=== PATIENT | female | born 1980 | race Caucasian/White ===

== ENCOUNTER 2024-11-10 14:43 | Outpatient (CLI) | payer BC, SELFPAY ==
--- NOTE | 2024-11-10 14:46 | XR_ITS ---
FINAL REPORT CLINICAL HISTORY: Assess fecal burden COMPARISON: None FINDINGS: SINGLE VIEW ABDOMEN A single view of the abdomen was obtained. There is a moderate stool burden. No abnormal calcifications are identified. IMPRESSION: Moderate stool burden. Reviewed, Interpreted and Dictated by Robert Parra MD Transcribed by Marisabel Johnson Authenticated and [facility]
--- OUTSIDE RECORDS SUMMARY | 2024-11-10 14:47 | XMS_ITS | Encounter Summary ---
Author Organization Healthcare Address [address] [place] [address] Care Team Providers Care Intervention Specialist Name Role Phone Angelica Ku APRN Primary Care Provider [phone] Wilmar Ndiaye MD Primary Care Provider [phone] Reason for Visit * Reason Onset Date Comments Med Refill 06/03/2022 Encounter Details Date Type Department Care Team (Late st Contact Info) Description 06/03/2022 Refill [facility] [address] [place] [address] Angelica Ku APRN [address] [place] [address] Intractable migraine without aura and without status migrainosus (Primary Dx) Social History Tobacco Use Types Packs/Day Years Used Date Smoking Tobacco: Never Smokeless Tobacco: Never Alcohol Use Standard Drinks/Week Comments Not Currently 0 (1 standard drink = 0.6 oz pur e alcohol) PHQ-2 Answer Date Recorded Patient Health Questionnaire-2 Score 0 05/07/2022 Comments No Sex and Gender Information Value Date Recorded Sex Assigned at Not on file Legal Sex Female 8:52 PM EDT Gender Identity Not on file Sexual Orientation Not on file COVID-19 Exposure Response Date Recorded In the last 10 days, have yo u been in contact with someone who was confirmed or suspected to have Coronavirus/COVID-19? No / Unsure 05/06/2022 9:46 AM EST documented as of this encounter Miscellaneous Notes * Telephone Encounter - Katie Ku - 06/04/2022 3:45 PM EST Attempted to call, pt not accepting calls. documented in this encounter Plan of Treatment Not on file documented as of this encounter Visit Diagnoses Diagnosis Intractable migraine without aura and without status migrainosus- Primary documented in this encounter Care Teams Intervention Specialist Relationship Specialty Start Date End Date Angelica Ku APRN [address] [place] [address] PCP - General Family Medicine 03/26/22 07/23/24 Wilmar Ndiaye MD [address] [place] [address] PCP - General 07/24/24 documented as of this encounter
--- OUTSIDE RECORDS SUMMARY | 2024-11-10 14:47 | XMS_ITS | Encounter Summary ---
[facility] Organization [facility] Address [address] [place] [id number] Care Team Providers Care Helicopter Engineer Name Role Phone Angelica Ku APRN Primary Care Provider [phone] Encounter Details Date Type Department Care Team (Late st Contact Info) Description 04/20/2021 Telephone [facility] [address] [facility] [place] [address] Christiano Zapien MD [address] [facility] [address] Kwan [place], [place] [id number] Social History Tobacco Use Types Packs/Day Years Used Date Smoking Tobacco: Never Assessed Comments No Sex and Gender Information Value Date Recorded Sex Assigned at Not on file Legal Sex Female 10:36 AM EDT Gender Identity Not on file Sexual Orientation Not on file 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
--- OUTSIDE RECORDS SUMMARY | 2024-11-10 14:47 | XMS_ITS | Encounter Summary ---
Author Organization Healthcare Address [address] [place] [address] Care Team Providers Care First Cook Name Role Phone Angelica Ku APRN Primary Care Provider [phone] Wilmar Ndiaye MD Primary Care Provider [phone] Encounter Details Date Type Department Care Team (Late st Contact Info) Description 07/23/2024 Outside Procedure External Location [address] [place] [address] Wilmar Ndiaye MD [address] [place] [address] Social History Tobacco Use Types Packs/Day Years Used Date Smoking Tobacco: Never Smokeless Tobacco: Never Alcohol Use Standard Drinks/Week Comments Not Currently 0 (1 standard drink = 0.6 oz pur e alcohol) Humiliation, Afraid, Rape, and Kick questionnair e Answer Date Recorded Within the last year, have y ou been afraid of your partner or ex-partner? No 02/12/2024 Within the last year, have y ou been humiliated or emotionally abused in other ways by your partner or ex-partner? No Within the last year, have y ou been kicked, hit, slapped, or otherwise physically hurt by your partner or ex-partner? No 02/12/2024 Within the last year, have y ou been raped or forced to have any kind of sexual activity by your partner or ex-partner? No 02/12/2024 PHQ-2 Answer Date Recorded Patient Health Questionnaire-2 Score 0 02/14/2024 Hunger Vital Sign Answer Date Recorded Within the past 12 months, y ou worried that your food would run out before you got the money to buy more. Never true 02/12/20 24 Within the past 12 months, t he food you bought just didn't last and you didn't have money to get more. Never true 02/12/2024 PRAPARE - Transportation Answer Date Re corded In the past 12 months, has l ack of transportation kept you from medical appointments or from getting medications? No 09/2023 In the past 12 months, has l ack of transportation kept you from meetings, work, or from getting things needed for daily living? No 02/12/2024 Housing Stability Vital Sign Answer Derik e Recorded In the last 12 months, was t here a time when you were not able to pay the mortgage or rent on time? No 02/12/2024 In the last 12 months, how many places have you lived? 1 02/12/2024 In the last 12 months, was t here a time when you did not have a steady place to sleep or slept in a long term (including now)? No 02/12/2024 Utilities Answer Date Recorded In the past 12 months has th e electric, gas, oil, or water company threatened to shut off services in your home? No 02/12/2024 PHQ-2A Answer Date Recorded Patient Health Questionnaire-2 Score 0 11/13/2022 Comments No Sex and Gender Information Value Date Recorded Sex Assigned at Not on file Legal Sex Female 8:52 PM EDT Gender Identity Not on file Sexual Orientation Not on file documented as of this encounter Plan of Treatment Not on file documented as of this encounter Procedures Procedure Name Priority Date/Time Associated Diagnosis Comments MAMMOGRAPHY BREAST SCREENING TOMOSYNTHESIS BILATERAL 07/23/2024 4:37 PM EDT documented in this encounter Results * Mammography Breast Screening Tomosynthesis Bilateral (07/23/2024 4:37 PM EDT) Anatomical Region Laterality Modality Breast Bilateral Mammography 07/23/2024 4:37 PM EDT Narrative 07/24/2024 6:01 AM EDT [facility] [address] [place] [address] Name: CHANELL LO Exam Date: 07/23/2024 : 1980 Age 44 years Gender: F Physician: Wilmar Ndiaye Facility: [facility] Facility HSV: Outpatient Exam: DIRK SCRN MAMMO W/CAD BILAT Exam: 3-D screening mammography including tomosynthesis and CAD (Computer Assisted Detection). Clinical indication: Asymptomatic screening exam Comparison: Exams to 2022 TECHNIQUE: Routine bilateral 2D screening mammogram with CC and MLO views obtained. 3-D tomosynthesis and Computer assisted detection were utilized for this exam. BREAST DENSITY: The breasts are heterogeneously dense, which may obscure small masses FINDINGS: No suspicious mass, architectural distortion, or suspicious calcifications are present. IMPRESSION: No evidence of malignancy in either breast Recommendation: Annual screening mammography recommended in one year The results of this report will be communicated to the patient by letter in layman's terms. ACR BI-RADS: BI-RADS assessment category 1: Negative mammogram Mammography does not detect approximately 10-15% of breast cancers. A normal mammogram does not exclude breast cancer in a patient with palpable mass or abnormal findings on physical examination. These patients may need biopsies and when clinically indicated a biopsy should not be postponed because of a normal mammogram. If the patient has breast surgery or biopsy, FDA/SA Regulatory Guidelines mandate that this facility receive pathologic results for follow-up correlation. Electronically signed by: Jose Yoon MD 07/24/2024 05:57 AM EDT Dictated By: Jose Yoon Transcribed By: Transcribed On: 07/23/2024 4:54 PM Electronically signed by: Jose Yoon 07/23/2024 Thank you for referring CHANELL LO to [facility]. Legally authenticated by RUEL SHABAZZ 2024-07-23 16:54:13 Procedure Note Provider, [facility] - 07/24/[address] [address] Name: CHANELL LO Exam Date: 07/23/2024 : 1980 Age 44 years Gender: F Physician: Wilmar Ndiaye Facility: [facility] Facility HSV: Outpatient Exam: DIRK SCRN MAMMO W/CAD BILAT Exam: 3-D screening mammography including tomosynthesis and CAD(Computer Assisted Detection). Clinical indication: Asymptomatic screening exam Comparison: Exams to 2022 TECHNIQUE: Routine bilateral 2D screening mammogram with CC and MLOviews obtained. 3-D tomosynthesis and Computer assisted detection were utilizedfor this exam. BREAST DENSITY: The breasts are heterogeneously dense, which may obscuresmall masses FINDINGS: No suspicious mass, architectural distortion, or suspicious calcifications are present. IMPRESSION: No evidence of malignancy in either breast Recommendation: Annual screening mammography recommended in one year The results of this report will be communicated to the patient by letterin layman's terms. ACR BI-RADS: BI-RADS assessment category 1: Negative mammogram Mammography does not detect approximately 10-15% of breast cancers. Anormal mammogram does not exclude breast cancer in a patient with palpable massor abnormal findings on physical examination. These patients may needbiopsies and when clinically indicated a biopsy should not be postponed because ofa normal mammogram. If the patient has breast surgery or biopsy, FDA/SA Regulatory Guidelines mandate that this facility receive pathologicresults for follow-up correlation. Electronically signed by: Jose Yoon MD 07/24/2024 05:57 AM EDTRP Dictated By: Jose Yoon Transcribed By: Transcribed On: 07/23/2024 4:54 PM Electronically signed by: Jose Yoon 07/23/2024 Thank you for [facility] Legally authenticated by RUEL SHABAZZ 2024-07-23 16:54:13 us Wilmar Ndiaye MD IMG BI PROCEDURES Final Resul t documented in this encounter Visit Diagnoses Not on filedocumented in this encounter Additional Health Concerns Assessment Noted Time A fall risk assessment has been complete d for the patient 02/20/2024 11:16 AM EST A Body Mass Index follow-up plan has been documented for the patient 02/20/2024 12:24 PM EST documented as of this encounter Care Teams First Cook Relationship Specialty Start Date End Date Angelica Ku APRN [address] [place] [address] PCP - General Family Medicine 03/26/22 07/23/24 Wilmar Ndiaye MD [address] [place] [address] PCP - General 07/24/24 documented as of this encounter
--- OUTSIDE RECORDS SUMMARY | 2024-11-10 14:47 | XMS_ITS | Encounter Summary ---
Author Organization Healthcare Address [address] [place] [address] Care Team Providers Care Road Mechanic Name Role Phone Angelica Ku APRN Primary Care Provider [phone] Wilmar Ndiaye MD Primary Care Provider [phone] Encounter Details Date Type Department Care Team (Late st Contact Info) Description 07/09/2023 Outside Procedure External Location [address] [place] [address] Provider, Christine Chapman Social History Tobacco Use Types Packs/Day Years Used Date Smoking Tobacco: Never Smokeless Tobacco: Never Alcohol Use Standard Drinks/Week Comments Not Currently 0 (1 standard drink = 0.6 oz pur e alcohol) PHQ-2 Answer Date Recorded Patient Health Questionnaire-2 Score 0 11/13/2022 PHQ-2A Answer Date Recorded Patient Health Questionnaire-2 [...] Procedure Name Priority Date/Time Associated Diagnosis Comments CT ABDOMEN PELVIS WO IV CONTRAST 07/09/2023 5:12 PM EDT documented in this encounter Results * CT Abdomen Pelvis wo IV Contrast (07/09/2023 5:12 PM EDT) Anatomical Region Laterality Modality Abdomen, Pelvis Computed Tomogra phy 07/09/2023 5:12 PM EDT Narrative 07/09/2023 7:17 [place] [address] Name: CHANELL LO Exam Date: 07/09/2023 : 1980 Age 43 years Gender: F Physician: ELROY HUANG Facility: [facility] Facility HSV: Outpatient Exam: CT ABD PEL W/O FINAL REPORT TECHNIQUE: Routine axial images through the abdomen and pelvis were obtained. CLINICAL HISTORY: Pain without trauma; LLQ pain x 1 day FINDINGS: Abdomen:The gallbladder is normal.The solid abdominal organs and ureters are unremarkable.The GI tract is unremarkable with no sign of appendicitis.Pelvis: The urinary bladder is normal. There is an IUD in place.There is an apparent 2.7 cm right ovarian cyst.The uterus and ovaries are otherwise unremarkable.There is no pelvic or abdominal ascites, adenopathy or acute osseous abnormality. IMPRESSION: Small right ovarian cyst, otherwise no acute disease. Reviewed, Interpreted and Dictated by Ady Méndez M.D. Transcribed by Daysi Mann Authenticated and [facility] Dictated By: Ady Méndez Transcribed By: Transcribed On: 07/09/2023 6:52 PM Electronically signed by: Ady Méndez 07/09/2023 Thank you for referring CHANELL LO to [facility]. Legally authenticated by ROBERTA FISHER 2023-07-09 18:52:50 Procedure Note Provider, [facility] [place] - 07/09/2023 [place] [address] Name: CHANELL LO Exam Date: 07/09/2023 : 1980 Age 43 years Gender: F Physician: ELROY HUANG Facility: [facility] Facility HSV: Outpatient Exam: CT ABD PEL W/O FINAL REPORT TECHNIQUE: Routine axial images through the abdomen and pelvis were obtained. CLINICAL HISTORY: Pain without trauma; LLQ pain x 1 day FINDINGS: Abdomen:The gallbladder is normal.The solid abdominal organs and ureters are unremarkable.The GI tract is unremarkable with no sign of appendicitis.Pelvis: The urinary bladder is normal. There is an IUD in place.There is an apparent 2.7 cm right ovarian cyst.The uterus and ovaries are otherwise unremarkable.There is no pelvic or abdominal ascites, adenopathy or acute osseous abnormality. IMPRESSION: Small right ovarian cyst, otherwise no acute disease. Reviewed, Interpreted and Dictated by Ady Méndez M.D. Transcribed by Daysi Mann Authenticated and [facility] Dictated By: Ady Méndez Transcribed By: Transcribed On: 07/09/2023 6:52 PM Electronically signed by: Ady Méndez 07/09/2023 Thank you for referring CHANELL LO to [facility]. Legally authenticated by ROBERTA FISHER 2023-07-09 18:52:50 Generic [place] Provider IMG CT PROCEDURES Fi nal Result documented in this encounter Visit Diagnoses Not on filedocumented in this encounter Additional Health Concerns Assessment Noted Time A fall risk assessment has been complete d for the patient 11/13/2022 2:04 PM EDT documented as of this encounter Care Teams Road Mechanic Relationship Specialty Start Date End Date Angelica Ku, RENÉE [address] [place] [address] PCP - General Family Medicine 03/26/22 07/23/24 Wilmar Ndiaye MD [address] [place] [address] PCP - General 07/24/24 documented as of this encounter
--- OUTSIDE RECORDS SUMMARY | 2024-11-10 14:47 | XMS_ITS | Encounter Summary ---
Author Organization Healthcare Address [address] [place] [address] Care Team Providers Care Glaze Mixer Name Role Phone Angelica Ku APRN Primary Care Provider [phone] Wilmar Ndiaye MD Primary Care Provider [phone] Encounter Details Date Type Department Care Team (Late st Contact Info) Description 06/28/2023 Outside Procedure External Location [address] [place] [address] Angelica Ku APRN [address] [place] [address] Social History Tobacco Use Types Packs/Day Years [...] Diagnosis Comments MAMMOGRAPHY BREAST SCREENING TOMOSYNTHESIS BILATERAL 06/28/2023 3:08 PM EDT documented in this encounter Results * Mammography Breast Screening Tomosynthesis Bilateral (06/28/2023 3:08 PM EDT) Anatomical Region Laterality Modality Breast Bilateral Mammography 06/28/2023 3:08 PM EDT Narrative 06/28/2023 4:47 [place] [address] Name: CHANELL LO Exam Date: 06/28/2023 : 1980 Age 43 years Gender: F Physician: ANGELICA KU [facility] Facility HSV: Outpatient Exam: DIRK SCRN MAMMO W/CAD BILAT MAMMOGRAM SCREENING BILATERAL WITH TOMOSYNTHESIS HISTORY: Routine screening exam COMPARISON: August 11, 2022 FINDINGS: Standard views were obtained. The breast parenchyma is heterogeneously dense, which may obscure small masses. Benign-appearing calcifications are present. No mass, suspicious calcifications or architectural distortion is present. IMPRESSION: No mammographic evidence of malignancy. BI-RADS 2: Benign findings RECOMMENDATION: Annual mammography CAD was utilized during interpretation. The patient will be sent a letter from the mammography department with their mammography findings. Dictated By: JENNYFER GABRIEL Transcribed By: Jennyfer Gabriel Transcribed On: 06/28/2023 4:21 PM Electronically signed by: JENNYFER GABRIEL 06/28/2023 Thank you for referring CHANELL LO to [facility]. Legally authenticated by POPE JENNYFER Kwan 2023-06-28 16:21:20 Procedure Note Provider, [facility] [place] - 06/28/2023 [place] [address] Name: CHANELL LO Exam Date: 06/28/2023 : 1980 Age 43 years Gender: F Physician: ANGELICA KU Facility: [facility] Facility HSV: Outpatient Exam: DIRK SCRN MAMMO W/CAD BILAT MAMMOGRAM SCREENING BILATERAL WITH TOMOSYNTHESIS HISTORY: Routine screening exam COMPARISON: August 11, 2022 FINDINGS: Standard views were obtained. The breast parenchyma is heterogeneously dense, which may obscure small masses. Benign-appearing calcifications are present. No mass, suspicious calcifications or architectural distortion is present. IMPRESSION: No mammographic evidence of malignancy. BI-RADS 2: Benign findings RECOMMENDATION: Annual mammography CAD was utilized during interpretation. The patient will be sent a letter from the mammography department withtheir mammography findings. Dictated By: JENNYFER GABRIEL Transcribed By: Jennyfer Gabriel Transcribed On: 06/28/2023 4:21 PM Electronically signed by: JENNYFER GABRIEL 06/28/2023 Thank you for referring CHANELL LO to [facility]. Legally authenticated by POPE JENNYFER Kwan 2023-06-28 16:21:20 us Angelica Ku APRN IMG BI PROCEDURES Final Resul t documented in this encounter Visit Diagnoses Not on filedocumented in this encounter Additional Health Concerns Assessment Noted Time A fall risk assessment has been complete d for the patient 11/13/2022 2:04 PM EDT documented as of this encounter Care Teams Glaze Mixer Relationship Specialty Start Date End Date Angelica Ku APRN [address] [place] [address] PCP - General Family Medicine 03/26/22 07/23/24 Wilmar Ndiaye MD [address] [place] [address] PCP - General 07/24/24 documented as of this encounter
--- OUTSIDE RECORDS SUMMARY | 2024-11-10 14:47 | XMS_ITS | Encounter Summary ---
Author Organization Healthcare Address [address] [place] [address] Care Team Providers Care And Rescue Fire Fighter Crash Fire Name Role Phone Angelica Ku APRN Primary Care Provider Wilmar Ndiaye MD Primary Care Provider [phone] Encounter Details Date Type Department Care Team (Late st Contact Info) Description 06/11/2022 Outside Procedure External Location [address] [place] [address] Angelica Ku CUSTOMER LOYALTY REPRESENTATIVE [address] [place] [address] Social History Tobacco Use Types Packs/Day Years [...] Diagnosis Comments MAMMOGRAPHY BREAST SCREENING TOMOSYNTHESIS BILATERAL 06/11/2022 4:15 PM EST documented in this encounter Results * Mammography Breast Screening Tomosynthesis Bilateral (06/11/2022 4:15 PM EST) Anatomical Region Laterality Modality Breast Bilateral Mammography 06/11/2022 4:15 PM EST Narrative 06/12/2022 8:29 [place] [address] Name: CHANELL LO Exam Date: 06/11/2022 : 1980 Age 42 Gender: F Physician: ANGELICA KU Facility: [facility] Facility HSV: Outpatient Exam: DIRK SCRN MAMMO W/CAD BILAT MAMMOGRAM SCREENING BILATERAL WITH TOMOSYNTHESIS HISTORY: Routine screening exam COMPARISON: None, Baseline exam FINDINGS: Standard views were obtained. There are scattered fibroglandular densities. Benign-appearing calcifications are present. No mass, suspicious calcifications or architectural distortion is present. IMPRESSION: No mammographic evidence of malignancy. BI-RADS 2: Benign RECOMMENDATION: Annual mammography CAD was utilized during interpretation. The patient will be sent a letter from the mammography department with their mammography findings. Dictated By: JENNYFER GABRIEL Transcribed By: Jennyfer Gabriel Transcribed On: 06/12/2022 8:17 AM Electronically signed by: JENNYFER GABRIEL 06/12/2022 Thank you for referring CHANELL LO to [facility]. Legally authenticated by POPE JENNYFER Kwan 2022-06-12 08:17:29 Procedure Note Provider, [facility] [place] - 06/12/2022 [place] [address] Name: CHANELL LO Exam Date: 06/11/2022 : 1980 Age 42 Gender: F Physician: ANGELICA KU Facility: [facility] Facility HSV: Outpatient Exam: DIRK SCRN MAMMO W/CAD BILAT MAMMOGRAM SCREENING BILATERAL WITH TOMOSYNTHESIS HISTORY: Routine screening exam COMPARISON: None, Baseline exam FINDINGS: Standard views were obtained. There are scatteredfibroglandular densities. Benign-appearing calcifications are present. No mass,suspicious calcifications or architectural distortion is present. IMPRESSION: No mammographic evidence of malignancy. BI-RADS 2: Benign RECOMMENDATION: Annual mammography CAD was utilized during interpretation. The patient will be sent a letter from the mammography department withtheir mammography findings. Dictated By: JENNYFER GABRIEL Transcribed By: Jennyfer Gabriel Transcribed On: 06/12/2022 8:17 AM Electronically signed by: JENNYFER GABRIEL 06/12/2022 Thank you for referring CHANELL LO to [facility]. Legally authenticated by POPE JENNYFER Kwan 2022-06-12 08:17:29 us Angelica Ku APRN IMG BI PROCEDURES Final Resul t documented in this encounter Visit Diagnoses Not on filedocumented in this encounter Care Teams And Rescue Fire Fighter Crash Fire Relationship Specialty Start Date End Date Angelica Ku APRN [address] [place] [address] PCP - General Family Medicine 03/26/22 07/23/24 Wilmar Ndiaye MD [address] [place] [address] PCP - General 07/24/24 documented as of this encounter
--- OUTSIDE RECORDS SUMMARY | 2024-11-10 14:47 | XMS_ITS | Clinical Summary ---
Author Organization [facility] Address [address] [id number] Care Team Providers Care Certified Ophthalmic Assistant Name Role Phone Wilmar Ndiaye MD Primary Care Provider [phone] Allergies Active Allergy Reactions Criticality Noted Date Comments Iodine Hives,Other - please document in the comment field,Unknown - Patient states they do not know rxn details Medium 08/10/2015 shortness of breath Latex Swelling,Hives,Rash, Un known - Patient states they do not know rxn details High 08/10/2015 angioedema angioedema Penicillins Swelling,Anaphylaxis ,R viki,Unknown - Patient states they do not know rxn details High 08/10/2015 vomiting vomiting Shellfish Allergy Anaphylaxis High 02/24/2022 Shellfish-Derived Products Angioedema,Rash High 12/09/2015 angioedema Sulfa Drugs Swelling,Angioedema, Ot her - please document in the comment field High 12/09/2015 angioedema angioedema Medications Coenzyme Q10 (CoQ-10) 100 MG capsule 0 Active cyclobenzaprine (Flexeril) 10 MG tablet Take 1 tablet (10 mg) by mouth 3 (three) times a day if needed for muscle spasms. 90 tablet 1 3 Active Glutamine 500 MG capsule 3 Active Misc Natural Products (JOINT HEALTH PO) 3 Active SUMAtriptan (Imitrex) 100 MG tabletIndications :Migraine without aura and without status migrainosus, not intractable TAKE 1 TABLET BY MOUTH AT ONSET OF HEADACHE; MAY REPEAT 1 TABLET IN 2 HOURS IF NEEDED. 27 tablet 4 Active [place]-3 1400 MG capsule 1 (one) time each day. 3 Active triamcinolone (Kenalog) 0.1 % cream Apply 1 Application topically if needed. 4 Active Vitamin D-Vitamin K (VITAMIN K2-VITAMIN D3 PO) Take 2 tablets by mouth 1 (one) time each day. 3 Active Probiotic Product (PROBIOTIC PO) Take 1 tablet by mouth 1 (one) time each day. 3 Active Methylcobalamin (METHYL B-12 PO) 3 Active hydrOXYzine pamoate (Vistaril) 50 MG capsuleIndication s:Anxiety and depression Take 1 capsule (50 mg) by mouth every 6 (six) hours if needed for itching. As needed 90 capsule 4 Active GAMMA AMINOBUTYRIC ACID PO Active Glutathione 200 MG/ML solution Activ e DHEA 50 MG tablet Ac tive Tryptophan 500 MG tablet Active Zinc 50 MG tablet Ac tive CREATINE PO Active Drospirenone 4 MG tabletIndications :Encounter for initial prescription of contraceptive pills,Migraine with aura and without status migrainosus, not intractable Take 1 tablet (4 mg) by mouth 1 (one) time each day. 84 tablet 3 4 Active Active Problems Problem Noted Date Diagnosed Date Frequent headaches 04/14/2019 Obsessive-compulsive behavior 04/14/2019 Intrauterine device surveillance 04/11/2017 Migraine without aura 08/04/2016 Primary insomnia 08/04/2016 Resolved Problems Problem Noted Date Diagnosed Date Resolved Date Lumbar pain with radiation down left leg 04/19/2020 11/13/2022 Neuropathy, peripheral 11/20/201911/13 Urinary incontinence in female 11/20/2019 11/13/2022 Anxiety and depression 04/14/201902/13 Enlarged thyroid 07/02/2018 05/07/2022 Incoordination 06/02/2018 11/13/2022 Shoulder pain 06/02/2018 11/13/2022 Exercise-induced asthma 06/25/20170 11/2023 Thyroiditis, autoimmune 06/25/20170 11/2022 Abnormal weight loss 08/04/2016 023 Gastroesophageal reflux disease 08/04/2016 05/07/2022 Mood disorder 08/04/2016 11/13/2022 Immunizations Immunization Administration Dates Next Due Hep A, Adult 04/03/2018 Hep B, adult 07/28/1997,07/05/1997,06/17/1997 Influenza, Unspecified 02/23/2022,2018,12/19/2017,2016 Influenza, seasonal, injecta ble, preservative free 02/14/2024 MMR 11/28/2006,10/20/1993 PPD Skin Test (TB Skin Test) 06/27/2011 Tdap 11/28/2006 Family History Medical History Relation Name Comments Autoimmune disease Brother Farhad Psoriasis Brother Farhad Alcohol abuse Father Jurgen Arthritis Father Jurgen Drug abuse Father Jurgen Hypertension, benign Father Jurgen Lung disease Father Jurgen Stroke Father Jurgen Crohn's disease Father's Sister 1 Alcohol abuse Father's Sister 2 Suzan Lung cancer Maternal Grandfather Alzheimer's disease Maternal Grandmother Arthritis Mother Ale Autoimmune disease Mother Ale Conversions - Other Mother Ale Thyroid trouble Depression Mother Ale Diabetes Mother Ael Drug abuse Mother Ale Fibromyalgia Mother Ale Gallbladder problem Mother Ale Lupus Mother Ale Mental illness Mother Ale Ovarian cancer Mother Ale Rheumatologic disease Mother Ale Diabetes Mother's Brother Js Heart attack Mother's Brother Js Obesity Mother's Brother Js Diabetes Mother's Sister Romana Hypertension, benign Mother's Sister Romana Lupus Mother's Sister Romana Obesity Mother's Sister Romana Seizures Mother's Sister Romana Alzheimer's disease Paternal Grandfather Hypertension, benign Paternal Grandmother Katerin Stroke Paternal Grandmother Katerin Uterine cancer Paternal Grandmother Katerin Asthma Sister Meredith Autoimmune disease Sister Meredith Lupus Sister Meredith Rheum arthritis Sister Meredith Rheumatologic disease Sister Meredith Skin Infections Sister Meredith Relation Name Status Comments Brother Farhad Alive Father Jurgen Alive Father's Sister 1 Father's Sister 2 Suzan Alive Maternal Grandfather Maternal Grandmother Alive Mother Ale Alive Mother's Brother Js Mother's Sister Romana Alive Paternal Grandfather Paternal Grandmother Katerin Alive Sister Meredith Alive Social History Tobacco Use Types Packs/Day Years Used Date Smoking Tobacco: Never Smokeless Tobacco: Never Tobacco Cessation:Counseling Given: Not Answered Alcohol Use Standard Drinks/Week Comments Not Currently [...] place to sleep or slept in a jail (including now)? No 02/12/2024 Utilities Answer Date [...] on file Sexual Orientation Not on file Last Filed Vital Signs Vital Sign Reading Time Taken Comments Blood Pressure 105/63 02/20/2024 11:15 AM EST Pulse 55 02/20/2024 11:15 AM EST Temperature 36.6 C (97.9 F) 02/20/2024 11:15 AM EST Respiratory Rate 14 02/20/2024 11:15 AM EST Oxygen Saturation 99% 02/20/2024 11:15 AM EST Inhaled Oxygen Concentration - - Weight 61.9 kg (136 lb 7.4 oz) 02/20/2024 11:15 AM EST Height 167.6 cm (5' 6 ) 02/20/2024 11:15 AM EST Body Mass Index 22.03 02/20/2024 11:15 AM EST Plan of Treatment Health Maintenance Due Date Last Done Comments [facility]-HIV Screening 1982 [facility]-Hepatitis C Screening 1982 [facility]-Infant/Child/Adol SDOH Screenings 1982 HPV Vaccines (1 - 3-dose series) 1997 [facility]-Hepatitis B Vaccines (2 of 3 - 3-dose series) 08/25/1997 07/28/1997, 07/05/1997, 06/17/1997 [facility]-Varicella Vaccines (1 of 2 - 13+ 2-dose series) 12/26/2006 [facility]-DTaP,Tdap,and Td Vaccines (2 - Td or Tdap) 11/28/2016 11/28/2006 [id number] Vaccine ( - season) 2023 12/20/2020, 11/22/2020 [facility]- SDOH Screenings 08/11/2024 [facility]-Adult SDOH Screenings 08/11/2024 02/12/2024 [facility]-Influenza Vaccine (#1) 12/07/202402/13, 02/23/2022, 02/16/2019, Additional history exists [facility]-Depression Screening 02/13/2025 02/14/2024 [facility]-Pap Smear 11/13/2025 11/13/2022, 08/05/2021, 09/10/2018 [facility]-Cervical Cancer Screening 11/14/2027 [facility]-HPV/Cotest 11/14/2027 11/13/2022, 0805/2021, 11/07/2021, Additional history exists [facility]-Zoster Vaccines (1 of 2) 2032 [facility]-Hepatitis A Vaccines Aged Out 04/03/2018 No longer eligible based on patient's age to complete this topic [facility]-HIB Vaccines Aged Out No longer e ligible based on patient's age to complete this topic [facility]-IPV Vaccines Aged Out No longer e ligible based on patient's age to complete this topic [facility]-Pneumococcal Vaccine: Pediatrics (0 to 5 Years) and At-Risk Patients (6 to 49 Years) Aged Out No longer eligible based on patient's age to complete this topic [facility]-Rotavirus Vaccines Aged Out No lo nger eligible based on patient's age to complete this topic Procedures Procedure Name Priority Date/Time Associated Diagnosis Comments PAP TEST - CYTOLOGY Routine 11/13/2022 2 :41 PM EDT Pap smear for cervical cancer screening from Last 3 Months or Most Recently Relevant to Health Maintenance Results * Pap Test (11/13/2022 2:41 PM EDT) Case Report Cytology Case: [id number] Authorizing Provider: Maricruz Sethi APRN, Collected: 11/13/2022 1441 CNM Ordering Location: Obstetrics & Gynecology Received: 11/14/2022 0841 First Screen: Rhonda Huitron Specimen: ThinPrep Pap Test, Liquid-Based Cervical/Vaginal 11/26/2022 10:11 AM EDT [facility] Interpretation NEGATIVE FOR INTRAEPITHELIAL LESION OR MALIGNANCY 11/26/2022 10:11 AM EDT [facility] at 1011 EDT Specimen Adequacy Satisfactory for evaluation; endocervical/rodgers sformation zone component present. Slide scanned and imaged by [employer] System with manual review of all selected medina. 11/26/2022 10:11 AM EDT [facility] Cervical cytology is a screening test primarily for squamous cancers and precursors and has associated false negative and positive results. New technologies such as liquid based sampling may decrease but will not eliminate all false negative results. Regular screening and follow-up of unexplained clinical signs and symptoms are recommended to minimize false negative results. Please see the ASCCP website (www.asccp.org)fo r followup recommendations. If HPV testing was requested, correlation with the results is suggested (please call Microbiology at [phone] for results). 11/26/2022 10:11 AM EDT [facility] Menstrual Status Not Applicable 11/07 10:11 AM EDT [facility] Contraceptive History Intrauterine device 11/26/2022 10:11 AM EDT [facility] Screening Type Previous or Suspected Abnormality 11/26/2022 10:11 AM EDT [facility] HPV Testing Requested? Request HPV Testing Regardless of Pap Test Findings 11/26/2022 10:11 AM EDT [facility] Previous Cancer History No 11/26/2022 10:11 AM EDT [facility] Previous or Suspected Abnormality Previous Abnormal Pap 11/26/2022 10:11 AM EDT [facility] Clinical Information Z12.4 - Pap smear for cervical cancer screening [ICD-10-CM] 11/26/2022 10:11 AM EDT [facility] Swab Vaginal and cervical cytologic material / Unknown Non-blood Collection / Unknown 11/13/2022 2:41 PM EDT 11/14/2022 8:41 AM EDT Maricruz Sethi APRN, CNM LAB CYTOLOGY ORDERA BLES Final Result Performing Organization Address City/State/[facility] Co de Phone Number [facility] [address] [place] [phone] from Last 3 Months or Most Recently Relevant to Health Maintenance Insurance MIRZA Care Teams Certified Ophthalmic Assistant Relationship Specialty Start Date End Date Wilmar Ndiaye MD [address] [facility] [place] [address] PCP - General 07/24/24
--- OUTSIDE RECORDS SUMMARY | 2024-11-10 14:47 | XMS_ITS | Clinical Summary ---
Author Organization [facility] Address [address] [place] [address] Care Team Providers Care Back Sizer Name Role Phone Angelica Ku APRN Primary Care Provider [phone] Allergies Active Allergy Reactions Criticality Noted Date Comments Iodine Hives 10/13/2020 Latex Hives 10/13/2020 Penicillins Anaphylaxis High 10/13/2020 Shellfish-Derived Products Angioedema 1 Sulfa Antibiotics Angioedema 10/13/2020 Medications sodium chloride 0.9 % nebulizer solution 0.88 mL with albuterol (5 MG/ML) 0.5% nebulizer solution 0.6 mg albuterol sulfate prn Active gabapentin (NEURONTIN) 300 MG capsule 1 Active levonorgestrel (Kyleena) 19.5 MG intrauterine device IUD Kyleena 17.5 mcg/24 hrs (5yrs) 19.5mg intrauterine device Take by intrauterine route. Active SUMAtriptan (IMITREX) 100 MG tablet 1 Active Coenzyme Q10 (CoQ-10) 100 MG capsule CoQ-10 200mg Active multivitamin with minerals (MULTI FOR HER PO) Multi For Her Active cyclobenzaprine (FLEXERIL) 10 MG tablet Take 10 mg by mouth 3 (Three) Times a Day As Needed. 1 Active Glutamine 500 MG tablet 8 Active Magnesium 250 MG tablet 1 Active topiramate (Topamax) 50 MG tablet Topamax 50 mg tablet Take 1 tablet every day by oral route. Active hydrOXYzine (ATARAX) 50 MG tabletIndication s:Primary insomnia 1 PO QHS for sleep 90 tablet 1 2 Active escitalopram (Lexapro) 10 MG tabletIndication s:Anxiety and depression,Obses sive-compulsive behavior Take 1 tablet by mouth Daily. 90 tablet 1 2 Active Active Problems Problem Noted Date Diagnosed Date Anxiety and depression 04/14/2019 Frequent headaches 04/14/2019 Obsessive-compulsive behavior 04/14/2019 Enlarged thyroid 07/02/2018 Exercise-induced asthma 06/25/2017 Thyroiditis, autoimmune 06/25/2017 Intrauterine device surveillance 04/11/2017 Gastroesophageal reflux disease 08/04/2016 Migraine without aura 08/04/2016 Primary insomnia 08/04/2016 Family History Medical History Relation Name Comments Alcohol abuse Father COPD Father Cirrhosis Father Diabetes Mother Hyperlipidemia Mother Hypertension Mother Thyroid disease Mother Ovarian cancer Paternal Grandmother Relation Name Status Comments Father Alive Mother Alive Paternal Grandmother Social History Tobacco Use Types Packs/Day Years Used Date Smoking Tobacco: Never Smokeless Tobacco: Never Alcohol Use Standard Drinks/Week Comments Never 0 (1 standard drink = 0.6 oz pur e alcohol) Abuse Screen Answer Date Recorded Unsafe at Home or Work/School Not on file Feels Threatened by Someone? Not on file Does Anyone Keep You from Co ntacting Others or Doint Things Outside the Home? Not on file 01/18/2023 Physical Sign of Abuse Present Not on file 1 Housing Stability Answer Date Recorded Current Living Arrangements Not on file 01/06 Potentially Unsafe Housing Conditions Not on francisco e 01/18/2023 Family and Community Support Answer Derik e Recorded Help with Day-to-Day Activities Not on file 01/18/2023 Lonely or Isolated Not on file 01/18/2023 Employment Answer Date Recorded Do you want help finding or keeping work or a adilene b? Not on file 01/18/2023 Disabilities Answer Date Recorded Concentrating, Remembering, or Making Decisions Difficulty Not on file 01/18/2023 Doing Errands Independently Difficulty Not on fi le 01/18/2023 Education Answer Date Recorded Help with school or training? 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 on file Not on f ile Last Filed Vital Signs Vital Sign Reading Time Taken Comments Blood Pressure 114/62 04/24/2021 3:42 PM EST Pulse 74 04/24/2021 3:42 PM EST Temperature 37 C (98.6 F) 04/24/2021 3:42 PM EST Respiratory Rate 18 04/24/2021 3:42 PM EST Oxygen Saturation - - Inhaled Oxygen Concentration - - Weight 59.9 kg (132 lb) 04/24/2021 3:42 PM EST Height 167.6 cm (5' 6 ) 04/24/2021 3:42 PM EST Body Mass Index 21.31 04/24/2021 3:42 PM EST Plan of Treatment Health Maintenance Due Date Last Done Comments TDAP/TD VACCINES (2 - Td or Tdap) 11/28/2016 11/28/2006 ANNUAL PHYSICAL 10/13/2020 HEPATITIS C SCREENING 10/13/2020 Annual Gynecologic Pelvic an d Breast Exam 10/15/2021 10/14/2020 MAMMOGRAM 2022 COVID-19 Vaccine ( - 2023-2 5 season) 2023 INFLUENZA VACCINE 01/06/2025 02/16/2019, 12/19/2017, 01/10/2017 Pneumococcal Vaccine 0-49 Aged Out No longer eligible based on patient's age to complete this topic Procedures Procedure Name Priority Date/Time Associated Diagnosis Comments SCANNED - PAP SMEAR Routine 10/14/2020 from Last 3 Months or Most Recently Relevant to Health Maintenance Results * PAP SMEAR SCANNED (10/14/2020) us Muna Ruiz APRN CHART REVIEW TABS Final Result [facility]
[address] [place] [address], [place] [phone] from Last 3 Months or Most Recently Relevant to Health Maintenance Insurance [employer] [facility] PPO Care Teams Back Sizer Relationship Specialty Start Date End Date Angelica Ku APRN [address] [place] [address] PCP - General Family Medicine 05/07/22
--- OUTSIDE RECORDS SUMMARY | 2024-11-10 14:48 | XMS_ITS | Patient Health Record ---
Author Organization [facility] Address [address] [place] [address] Care Team Providers Care Scrap Iron Loader Name Role Phone Paulo Mireles Unavailable [phone] Allergies No Known Allergies Results Component Value Reference Range Notes Flu/COVID Rapid Antigen (IH) Reviewed date:06/23/2024 03:01:15 PM Interpretation:Negative Performing Lab: Notes/Report: Negative Flu A negative Negative - Positive Flu B negative Negative - Positive SARS CoV 2 negative Negative - Positive Reason For Referral No Information Medications Medication SIG (Take, Route, Fr equency, Duration) Notes Start Date End Date Status Auvelity 45-105 MG 1 tablet in the morn ing Orally Once a day Active Immunizations Vaccine Route Administration Date Status Comme nts PPD Aplisol TD Transdermal 02/03/2023 Administered Social History Tobacco Use: Social History Observation Description Date Details (start date - stop date) Never Smoker NA - NA Tobacco Control (Standard) Question Answer Notes Tobacco use: Nonsmoker AUDIT-C (Standard) Question Answer Notes Did you have a drink containing alcohol in the p ast year? No Points 0 Interpretation Negative Problems Problem Type SNOMED Code ICD Code Onset Dates Problem Status W/U Status Risk Notes Problem Acute tonsillitis (74063897) Acute tonsillitis (J03.90) Active confirmed Problem Non-suppurative otitis media (244945341) Middle ear effusion, bilateral (H65.93) Active confirmed Problem Acute bilateral otitis media (111956483) Acute bilateral otitis media (H66.93) Active confirmed Problem Suspected disease caused by Severe acute respiratory coronavirus 2 (situation) (651641866) Encounter for screening for COVID-19 (Z11.52) Active confirmed Problem Acute cough (773905018315287 104) Acute cough (R05.1) Active confirmed Vital Signs Temperature 98.3 degrees Fahrenheit 06/23/2024 Respiratory Rate 18 /min 06/23/2024 Blood pressure diastolic 64 mm Hg 06/23/2024 Height 066 in 06/23/2024 Blood pressure systolic 96 mm Hg 06/23/2024 Weight 0125 lbs 06/23/2024 BMI 20.17 kg/m2 06/23/2024 Encounters Encounter Location Date Provider Diagnosis [id number] [address] 06/23/2024 Paulo Aline Encounter for screening for COVID-19 Z11.52 ; Middle ear effusion, bilateral H65.93 ; Acute bilateral otitis media H66.93 ; Acute tonsillitis J03.90 and Acute cough R05.1 Assessments Encounter Date Diagnosis (ICD Code) Assessment Notes Treatment Notes Treatment Clinical Notes Section Notes 06/23/2024 Middle ear effusion, bilateral (ICD-10 - H65.93) Middle Ear Fluid: Care Instructions material was published 06/23/2024 Encounter for screening for COVID-19 (ICD-10 - Z11.52) 7 Reasons You May Need a COVID-19 Viral Test material was published 06/23/2024 Acute bilateral otitis media (ICD-10 - H66.93) Ear Infection (Otitis Media): Care Instructions material was published 06/23/2024 Acute tonsillitis (ICD-10 - J03.90) Patient declined strep testing., Tonsillitis: Care Instructions material was published 06/23/2024 Acute cough (ICD-10 - R05.1) Cough: Care Instructions material was published 06/23/2024 Other Prednisone material was published, Amoxicillin and Clavulanic Acid material was published, Benzonatate material was published Plan Of Treatment No Information Insurance Providers Payer Name Payer Address Payer Phone Subscriber Number Group Number Insured Name Patient Relationship to Insured Coverage Start Date Coverage End Date MIRZA [facility] [address] [place] [address] [phone] [id number] Chanell Almaraz Self - patient is the insured Medical (General) History Medical History History ICD Code Depression F32.A Surgical History Surgery Date(Month/Year) microvascular decompression craniotomy 2 016 Hospitalization History Reason Date(Month/Year) as above.
== END 2024-11-10 23:59 | disposition home or self-care (01) ==
LOC: RAD 14:44
PROVIDERS: PCP Internal Medicine; Visit Provider Internal Medicine Gastroenterology
DX: K59.89 Other specified functional intestinal disorders (principal); K59.00 Constipation, unspecified
CPT/HCPCS: 74018